=== PATIENT | male | born 1990 | race Hispanic/Latino ===

== ENCOUNTER 2018-09-22 16:26 | Emergency (ER) | payer SELFPAY ==
[~2018-09-22 16:26] MED LIST: CLIN300C9 PO; INSLAN SQ; SULF-168 PO; TRAM50TA2 PO
[2018-09-22 16:51] LABS: BASOPHILS % (AUTO) 0.4 % (0.0-5.0); EOSINOPHILS % (AUTO) 2.1 % (0.0-8.0); HEMATOCRIT 35.5 % (42-54); LYMPHOCYTES % (AUTO) 20.6 % (21.0-51.0); MEAN CORPUSCULAR HGB CONC 33.9 g/dL (32.0-36.0); MEAN CORPUSCULAR VOLUME 88.4 fL (79-99); MONOCYTES % (AUTO) 6.9 % (3.0-13.0); PLATELET COUNT (AUTO) 285 K/uL (130-400); RED BLOOD CELL COUNT(AUTO) 4.02 MIL/uL (4.50-6.20); RED CELL DISTRIBUTION WIDTH 12.5 % (11.0-15.5); WHITE BLOOD COUNT (AUTO) 8.5 K/uL (4.8-10.8)
[2018-09-22 17:31] LABS: CREATININE 0.7 mg/dL (0.5-1.5); POTASSIUM 4.2 mmol/L (3.5-5.1)
[2018-09-22 17:32] LABS: ALBUMIN 2.6 g/dL (3.5-5.0); BILIRUBIN,TOTAL 0.1 mg/dL (0.2-1.0)
[2018-09-22] MEDS ORDERED: CEFTRIAXONE SODIUM 1 GM ONE (17:37)
[2018-09-22] MEDS ORDERED: SODIUM CHLORIDE 0.9% 50 ML IV ONE (17:38)
== END 2018-09-22 18:37 | disposition home or self-care (01) ==
LOC: EDH 16:26
DX: E11.621 Type 2 diabetes mellitus with foot ulcer (principal); E11.65 Type 2 diabetes mellitus with hyperglycemia; E78.5 Hyperlipidemia, unspecified; Z79.4 Long term (current) use of insulin
CPT/HCPCS: 36415; 73630; 80053; 85025; 96374; 99285; J0696

== ENCOUNTER 2018-10-02 21:02 | Inpatient (IN) | payer OTHER ==
[~2018-10-02] VITALS: Ht 180.3 cm; Wt 71.0 kg
[2018-10-02 22:30] LABS: BASOPHILS % (AUTO) 0.3 % (0.0-5.0); EOSINOPHILS % (AUTO) 0.3 % (0.0-8.0); HEMATOCRIT 35.3 % (42-54); LYMPHOCYTES % (AUTO) 8.9 % (21.0-51.0); MEAN CORPUSCULAR HEMOGLOBIN 28.5 pg (27.0-33.0); MEAN CORPUSCULAR HGB CONC 32.5 g/dL (32.0-36.0); MEAN CORPUSCULAR VOLUME 87.7 fL (79-99); MONOCYTES % (AUTO) 8.4 % (3.0-13.0); NEUTROPHILS % (AUTO) 82.1 % (40.0-77.0); PLATELET COUNT (AUTO) 381 K/uL (130-400); RED BLOOD CELL COUNT(AUTO) 4.03 MIL/uL (4.50-6.20); RED CELL DISTRIBUTION WIDTH 12.2 % (11.0-15.5); WHITE BLOOD COUNT (AUTO) 13.4 K/uL (4.8-10.8)
[2018-10-02 22:47] LABS: ALBUMIN 2.4 g/dL (3.5-5.0); BILIRUBIN,TOTAL 0.3 mg/dL (0.2-1.0); CRP QUANTITATIVE 170.2 mg/L (0.00-9.0); POTASSIUM 4.7 mmol/L (3.5-5.1); TOTAL PROTEIN, SERUM 8.1 g/dL (6.0-8.3)
[2018-10-02] MEDS ORDERED: LEVOFLOXACIN 500 MG TABLET ONE (23:01)
[2018-10-02] MEDS ORDERED: SODIUM CHLORIDE 0.9% 1000ML 1,000 ML IV ONE (23:01)
[2018-10-02] MEDS ORDERED: ZOSYN 3.375GM+NS 50ML 50 ML IV ONE (23:02)
[2018-10-02] MEDS ORDERED: INSULIN HUMULIN R 100 UNIT/ML 3ML ONE (23:03)
[2018-10-02] MEDS ORDERED: SODIUM CHLORIDE 0.9% 50 ML IV ONE (23:04)
[2018-10-02 23:23] LABS: APPEARANCE,URINE Clear (CLEAR); BILIRUBIN,URINE Negative (NEGATIVE); COLOR,URINE Yellow (YELLOW); GLUCOSE, URINE (UA) >=1000 mg/dL (NEGATIVE); KETONES,URINE 40 mg/dL (NEGATIVE); LEUKOCYTE ESTERASE ,URINE Negative (NEGATIVE); NITRATE,URINE Negative (NEGATIVE); OCCULT BLOOD,URINE Small (NEGATIVE); PH,URINE 6.5 (5.0-8.0); PROTEIN,URINE Negative (NEGATIVE); UROBILINOGEN,URINE 0.2 mg/dL (0.2-1.0)
[2018-10-02 23:49] LABS: BACTERIA,URINE None Seen /HPF (None Seen); MUCUS,URINE Few LPF (None Seen); SQUAMOUS EPITHELIAL CELL,UR Few /HPF (0-2); WBC,URINE None Seen /HPF (0-1)
[2018-10-02 23:59] LABS: ERYTHROCYTE SEDIMENTATION RATE 124 MM/HR (0-15)
[2018-10-03] VITALS (20 sets, daily range): BP systolic 94–151; BP diastolic 39–98
[2018-10-03] MEDS: SODIUM CHLORIDE 0.9% 1000ML 1,000 ML IV SCH ×2 (00:47→23:59)
[2018-10-03] MEDS ORDERED: VANCOMYCIN 1GM+NS 250ML 250 ML IV SCH (01:00)
[2018-10-03] MEDS ORDERED: VANCOMYCIN PROTOCOL PER PHARMACY IV SCH ×2 (01:15→05:00)
[2018-10-03] MEDS ORDERED: VANCOMYCIN 1GM+NS 250ML 250 ML IV ONE (01:20)
[2018-10-03] MEDS ORDERED: SODIUM CHLORIDE 0.9% 1000ML 1,000 ML IV ONE (01:20)
[2018-10-03] MEDS: ZOSYN 3.375GM+NS 50ML 50 ML IV SCH ×3 (06:27→22:26)
[2018-10-03] MEDS ORDERED: VANCOMYCIN 1.75 GM in SODIUM CHLORIDE 0.9% 250 ML IV SCH (06:30)
[2018-10-03] MEDS ORDERED: DEXTROSE 50%-WATER 50 ML DISP.SYRIN IV PRN (06:45)
[2018-10-03] MEDS ORDERED: GLUCAGON 1MG KIT 1 MG ML IM PRN (06:45)
[2018-10-03] MEDS: INSULIN HUMULIN R 100 UNIT/ML 3ML SQ SCH ×4 (07:04→22:26)
[2018-10-03] MEDS ORDERED: PNEUMOCOCCAL VACCINE POLYVALENT 0.5 ML/VIAL [PPV] IM ONE (09:00)
[2018-10-03] MEDS: FAMOTIDINE 20MG TAB 20 MG TAB PO SCH ×2 (09:03→22:26)
[2018-10-03 12:48] LABS: HEMATOCRIT 30.8 % (42-54); MEAN CORPUSCULAR HEMOGLOBIN 29.4 pg (27.0-33.0); MEAN CORPUSCULAR HGB CONC 33.8 g/dL (32.0-36.0); PLATELET COUNT (AUTO) 354 K/uL (130-400); RED BLOOD CELL COUNT(AUTO) 3.54 MIL/uL (4.50-6.20); WHITE BLOOD COUNT (AUTO) 12.8 K/uL (4.8-10.8)
[2018-10-03 13:15] LABS: ALBUMIN 2.1 g/dL (3.5-5.0); BILIRUBIN,TOTAL 0.3 mg/dL (0.2-1.0); CREATININE 0.9 mg/dL (0.5-1.5); POTASSIUM 3.5 mmol/L (3.5-5.1); TOTAL PROTEIN, SERUM 7.1 g/dL (6.0-8.3)
[2018-10-03] MEDS: ACETAMINOPHEN 325 MG TAB PO PRN (14:10)
[2018-10-03] MEDS ORDERED: MIDAZOLAM HCL 1 MG/ML 2ML VIAL ONE (17:34)
[2018-10-03] MEDS ORDERED: FENTANYL CITRATE PF 50 MCG/1 ML 2ML VIAL ONE (17:34)
[2018-10-03] MEDS ORDERED: PROPOFOL 10 MG/ML 20ML VIAL IV ONE (17:34)
[2018-10-03] MEDS ORDERED: LIDOCAINE HCL 1% 20 ML VIAL ONE (17:36)
[2018-10-03] MEDS ORDERED: BUPIVACAINE/PF 0.5% 30ML VIAL ONE (17:36)
[2018-10-03] MEDS: VANCOMYCIN 1GM+NS 250ML 250 ML IV SCH ×2 (18:20→18:30)
[2018-10-03] MEDS: ONDANSETRON HCL 4 MG/2 ML VIAL IV PRN (22:44)
[2018-10-03] MEDS: MORPHINE SULFATE 4 MG/1ML SYG IV PRN (23:58)
[2018-10-04 04:00] VITALS: BP 116/76
[2018-10-04] MEDS: ZOSYN 3.375GM+NS 50ML 50 ML IV SCH ×3 (06:03→22:29)
[2018-10-04] MEDS: VANCOMYCIN 1GM+NS 250ML 250 ML IV SCH (06:04)
[2018-10-04 06:19] LABS: HEMATOCRIT 30.8 % (42-54); MEAN CORPUSCULAR HGB CONC 33.4 g/dL (32.0-36.0); MEAN CORPUSCULAR VOLUME 86.9 fL (79-99); PLATELET COUNT (AUTO) 361 K/uL (130-400); RED BLOOD CELL COUNT(AUTO) 3.55 MIL/uL (4.50-6.20); RED CELL DISTRIBUTION WIDTH 12.2 % (11.0-15.5); WHITE BLOOD COUNT (AUTO) 11.6 K/uL (4.8-10.8)
[2018-10-04] MEDS: SODIUM CHLORIDE 0.9% 1000ML 1,000 ML IV SCH ×2 (06:20→21:42)
[2018-10-04] MEDS: ONDANSETRON HCL 4 MG/2 ML VIAL IV PRN ×2 (06:25→17:42)
[2018-10-04 06:35] LABS: CREATININE 2.2 mg/dL (0.5-1.5); POTASSIUM 4.2 mmol/L (3.5-5.1)
[2018-10-04] MEDS: INSULIN HUMULIN R 100 UNIT/ML 3ML SQ SCH ×4 (06:42→21:23)
[2018-10-04 08:30] VITALS: BP 131/89
[2018-10-04] MEDS: MORPHINE SULFATE 4 MG/1ML SYG IV PRN (11:04)
[2018-10-04] MEDS: FAMOTIDINE 20MG TAB 20 MG TAB PO SCH ×2 (11:05→21:23)
[2018-10-04 12:08] VITALS: BP 126/82
[2018-10-04] MEDS ORDERED: DIPH,PERTUSS(ACELL),TET VAC/PF 0.5 ML VIAL IM SCH (14:15)
[2018-10-04 16:41] VITALS: BP 127/84
[2018-10-04 19:00] VITALS: BP 123/81
[2018-10-04] MEDS: INSULIN GLARGINE 100 UNITS/ML 10 ML VIAL SQ SCH (21:21)
[2018-10-04] MEDS: ACETAMINOPHEN 325 MG TAB PO PRN (22:29)
[2018-10-04 23:00] VITALS: BP 108/65
[2018-10-05 03:00] VITALS: BP 106/60
[2018-10-05 04:48] LABS: HEMATOCRIT 29.4 % (42-54); MEAN CORPUSCULAR HGB CONC 34.3 g/dL (32.0-36.0); MEAN CORPUSCULAR VOLUME 87.4 fL (79-99); PLATELET COUNT (AUTO) 434 K/uL (130-400); RED BLOOD CELL COUNT(AUTO) 3.37 MIL/uL (4.50-6.20); RED CELL DISTRIBUTION WIDTH 12.1 % (11.0-15.5); WHITE BLOOD COUNT (AUTO) 10.1 K/uL (4.8-10.8)
[2018-10-05 04:55] LABS: CREATININE 3.6 mg/dL (0.5-1.5); POTASSIUM 4.3 mmol/L (3.5-5.1)
[2018-10-05] MEDS: ZOSYN 3.375GM+NS 50ML 50 ML IV SCH ×3 (05:12→23:13)
[2018-10-05] MEDS: ONDANSETRON HCL 4 MG/2 ML VIAL IV PRN ×3 (05:18→16:44)
[2018-10-05] MEDS: SODIUM CHLORIDE 0.9% 1000ML 1,000 ML IV SCH (05:18)
[2018-10-05] MEDS: INSULIN HUMULIN R 100 UNIT/ML 3ML SQ SCH ×4 (06:21→20:32)
[2018-10-05] MEDS: VANCOMYCIN 500MG+NS 100ML 100 ML IV SCH ×2 (06:24→20:31)
[2018-10-05 08:16] VITALS: BP 119/78
[2018-10-05] MEDS: ENOXAPARIN SODIUM 30 MG/0.3 ML SQ SCH (09:54)
[2018-10-05] MEDS: FAMOTIDINE 20MG TAB 20 MG TAB PO SCH ×2 (09:57→20:31)
[2018-10-05] MEDS ORDERED: LACTULOSE 20 GM/30 ML UDCUP PO PRN (10:00)
[2018-10-05 12:17] VITALS: BP 125/82
[2018-10-05 16:35] VITALS: BP 137/88
[2018-10-05] MEDS: ACETAMINOPHEN 325 MG TAB PO PRN (16:45)
[2018-10-05 19:38] VITALS: BP 139/83
[2018-10-05] MEDS: INSULIN GLARGINE 100 UNITS/ML 10 ML VIAL SQ SCH (20:33)
[2018-10-06] VITALS (7 sets, daily range): BP systolic 129–147; BP diastolic 83–94
[2018-10-06 04:45] LABS: HEMATOCRIT 31.3 % (42-54); MEAN CORPUSCULAR HGB CONC 33.3 g/dL (32.0-36.0); MEAN CORPUSCULAR VOLUME 87.3 fL (79-99); PLATELET COUNT (AUTO) 409 K/uL (130-400); POTASSIUM 3.8 mmol/L (3.5-5.1); RED BLOOD CELL COUNT(AUTO) 3.58 MIL/uL (4.50-6.20); RED CELL DISTRIBUTION WIDTH 12.4 % (11.0-15.5); WHITE BLOOD COUNT (AUTO) 10.4 K/uL (4.8-10.8)
[2018-10-06] MEDS: ONDANSETRON HCL 4 MG/2 ML VIAL IV PRN ×3 (05:24→23:39)
[2018-10-06] MEDS: VANCOMYCIN 500MG+NS 100ML 100 ML IV SCH (06:16)
[2018-10-06] MEDS: ZOSYN 3.375GM+NS 50ML 50 ML IV SCH ×3 (06:16→23:46)
[2018-10-06] MEDS: INSULIN HUMULIN R 100 UNIT/ML 3ML SQ SCH ×4 (06:17→21:22)
[2018-10-06] MEDS: ENOXAPARIN SODIUM 30 MG/0.3 ML SQ SCH (10:36)
[2018-10-06] MEDS: FAMOTIDINE 20MG TAB 20 MG TAB PO SCH ×2 (13:05→21:38)
[2018-10-06] MEDS: METOCLOPRAMIDE 5 MG TABLET PO SCH ×2 (13:05→17:00)
[2018-10-06] MEDS: MORPHINE SULFATE 4 MG/1ML SYG IV PRN ×3 (13:14→23:39)
[2018-10-06] MEDS ORDERED: SODIUM CHLORIDE 0.9% 1000ML 1,000 ML IV SCH (13:45)
[2018-10-06 17:35] LABS: APPEARANCE,URINE Clear (CLEAR); BILIRUBIN,URINE Negative (NEGATIVE); COLOR,URINE Yellow (YELLOW); GLUCOSE, URINE (UA) TRACE mg/dL (NEGATIVE); KETONES,URINE Trace mg/dL (NEGATIVE); LEUKOCYTE ESTERASE ,URINE Negative (NEGATIVE); NITRATE,URINE Negative (NEGATIVE); OCCULT BLOOD,URINE Negative (NEGATIVE); PH,URINE 5.5 (5.0-8.0); PROTEIN,URINE POS 1+ (NEGATIVE); UROBILINOGEN,URINE 0.2 mg/dL (0.2-1.0)
[2018-10-06 18:40] LABS: BACTERIA,URINE Rare /HPF (None Seen); RBC,URINE 0-1 /HPF (0-1); SQUAMOUS EPITHELIAL CELL,UR Rare /HPF (0-2); WBC,URINE 0-1 /HPF (0-1)
[2018-10-06] MEDS: SODIUM CHLORIDE 0.9% 1000ML 1,000 ML IV SCH ×2 (18:45→21:51)
[2018-10-06] MEDS: AMOXICILLIN 500 MG CAPSULE PO SCH (18:55)
[2018-10-06] MEDS: INSULIN GLARGINE 100 UNITS/ML 10 ML VIAL SQ SCH (21:23)
[2018-10-07 03:10] VITALS: BP_SYST 153; BP_SYST 165; BP_DIAS 84; BP_DIAS 85
[2018-10-07] MEDS: AMOXICILLIN 500 MG CAPSULE PO SCH ×2 (05:12→17:10)
[2018-10-07 05:46] LABS: ALBUMIN 1.9 g/dL (3.5-5.0); BILIRUBIN,TOTAL 0.3 mg/dL (0.2-1.0); CREATININE 3.8 mg/dL (0.5-1.5); MAGNESIUM 2.2 mg/dL (1.80-2.40); PHOSPHORUS 5.2 mg/dL (2.5-4.9); POTASSIUM 3.7 mmol/L (3.5-5.1); TOTAL PROTEIN, SERUM 6.8 g/dL (6.0-8.3); URIC ACID 4.7 mg/dL (2.6-7.2)
[2018-10-07 05:50] LABS: BAND NEUTROPHILS % (MANUAL) 2 % (0-2); EOSINOPHILS % (MANUAL) 1 % (1-6); LYMPHOCYTES % (MANUAL) 16 % (22-44); MONOCYTES % (MANUAL) 12 % (2-9); SEGMENTED NEUTROPHILS % 69 % (40-70)
[2018-10-07 05:51] LABS: MAN.DIFF COMMENT-IMPRESSION MANUAL DIFFERENTIAL
[2018-10-07 05:52] LABS: PLATELET MORPHOLOGY COMMENT ADEQUATE
[2018-10-07 05:57] LABS: HEMATOCRIT 33.7 % (42-54); MEAN CORPUSCULAR HEMOGLOBIN 29.3 pg (27.0-33.0); MEAN CORPUSCULAR HGB CONC 33.6 g/dL (32.0-36.0); MEAN CORPUSCULAR VOLUME 87.2 fL (79-99); PLATELET COUNT (AUTO) 482 K/uL (130-400); RED BLOOD CELL COUNT(AUTO) 3.86 MIL/uL (4.50-6.20); RED CELL DISTRIBUTION WIDTH 12.2 % (11.0-15.5); WHITE BLOOD COUNT (AUTO) 10.8 K/uL (4.8-10.8)
[2018-10-07] MEDS: INSULIN HUMULIN R 100 UNIT/ML 3ML SQ SCH ×4 (06:49→21:08)
[2018-10-07] MEDS: SODIUM CHLORIDE 0.9% 1000ML 1,000 ML IV SCH ×2 (06:51→23:23)
[2018-10-07] MEDS: METOCLOPRAMIDE 5 MG TABLET PO SCH ×3 (06:51→17:10)
[2018-10-07] MEDS: ZOSYN 3.375GM+NS 50ML 50 ML IV SCH ×3 (06:51→23:23)
[2018-10-07 07:00] VITALS: BP 131/82
[2018-10-07] MEDS: FAMOTIDINE 20MG TAB 20 MG TAB PO SCH ×2 (09:49→21:15)
[2018-10-07] MEDS: INSULIN GLARGINE 100 UNITS/ML 10 ML VIAL SQ SCH ×2 (09:50→21:08)
[2018-10-07] MEDS: ONDANSETRON HCL 4 MG/2 ML VIAL IV PRN ×2 (09:56→16:33)
[2018-10-07] MEDS: MORPHINE SULFATE 4 MG/1ML SYG IV PRN ×2 (09:57→16:33)
[2018-10-07 11:00] VITALS: BP 125/83
[2018-10-07] MEDS: ENOXAPARIN SODIUM 30 MG/0.3 ML SQ SCH (11:02)
[2018-10-07 16:00] VITALS: BP 140/89
[2018-10-07 19:25] VITALS: BP 127/83
[2018-10-07] MEDS: FOLIC ACID/VITAMIN B COMP W-C 1 MG CAPSULE PO SCH (21:15)
[2018-10-08] VITALS (7 sets, daily range): BP systolic 140–158; BP diastolic 77–106
[2018-10-08 04:33] LABS: BASOPHILS % (AUTO) 0.5 % (0.0-5.0); EOSINOPHILS % (AUTO) 1.2 % (0.0-8.0); HEMATOCRIT 30.3 % (42-54); LYMPHOCYTES % (AUTO) 12.2 % (21.0-51.0); MEAN CORPUSCULAR HEMOGLOBIN 28.5 pg (27.0-33.0); MEAN CORPUSCULAR HGB CONC 32.7 g/dL (32.0-36.0); MEAN CORPUSCULAR VOLUME 87.2 fL (79-99); MONOCYTES % (AUTO) 11.4 % (3.0-13.0); NEUTROPHILS % (AUTO) 74.7 % (40.0-77.0); PLATELET COUNT (AUTO) 346 K/uL (130-400); RED BLOOD CELL COUNT(AUTO) 3.48 MIL/uL (4.50-6.20); RED CELL DISTRIBUTION WIDTH 12.4 % (11.0-15.5); WHITE BLOOD COUNT (AUTO) 9.6 K/uL (4.8-10.8)
[2018-10-08 04:41] LABS: CREATININE 3.6 mg/dL (0.5-1.5); POTASSIUM 3.3 mmol/L (3.5-5.1)
[2018-10-08] MEDS: AMOXICILLIN 500 MG CAPSULE PO SCH ×2 (05:43→17:53)
[2018-10-08] MEDS: ACETAMINOPHEN 325 MG TAB PO PRN (05:47)
[2018-10-08] MEDS: METOCLOPRAMIDE 5 MG TABLET PO SCH ×3 (05:48→17:53)
[2018-10-08] MEDS: INSULIN HUMULIN R 100 UNIT/ML 3ML SQ SCH ×4 (06:08→20:06)
[2018-10-08] MEDS: ZOSYN 3.375GM+NS 50ML 50 ML IV SCH ×3 (06:25→23:07)
[2018-10-08] MEDS ORDERED: POTASSIUM CHLORIDE 10% ELIXIR 20 MEQ/15 ML UDCUP PO PRN (06:45)
[2018-10-08] MEDS ORDERED: LIDOCAINE HCL-MPF 1% 2ML VIAL IVP PRN (06:45)
[2018-10-08] MEDS ORDERED: POTASSIUM CHLORIDE 10MEQ/100ML 100 ML IV PRN (06:45)
[2018-10-08] MEDS: SODIUM CHLORIDE 0.9% 1000ML 1,000 ML IV SCH ×3 (07:27→23:19)
[2018-10-08] MEDS: FAMOTIDINE 20MG TAB 20 MG TAB PO SCH ×2 (11:24→21:39)
[2018-10-08] MEDS: FOLIC ACID/VITAMIN B COMP W-C 1 MG CAPSULE PO SCH (11:24)
[2018-10-08] MEDS: ENOXAPARIN SODIUM 30 MG/0.3 ML SQ SCH (11:24)
[2018-10-08] MEDS: INSULIN GLARGINE 100 UNITS/ML 10 ML VIAL SQ SCH ×2 (11:31→21:46)
[2018-10-08] MEDS: POTASSIUM CHLORIDE 20 MEQ ERTAB PO PRN ×2 (12:39→15:24)
[2018-10-08] MEDS: METRONIDAZOLE 500 MG TABLET PO SCH ×2 (15:23→21:39)
[2018-10-08] MEDS: ONDANSETRON HCL 4 MG/2 ML VIAL IV PRN (15:23)
[2018-10-09] VITALS (33 sets, daily range): BP systolic 129–173; BP diastolic 82–117
[2018-10-09] MEDS: AMOXICILLIN 500 MG CAPSULE PO SCH ×2 (05:15→16:40)
[2018-10-09] MEDS: METRONIDAZOLE 500 MG TABLET PO SCH ×3 (05:22→21:34)
[2018-10-09] MEDS: ONDANSETRON HCL 4 MG/2 ML VIAL IV PRN (05:29)
[2018-10-09 05:46] LABS: BASOPHILS % (AUTO) 0.8 % (0.0-5.0); EOSINOPHILS % (AUTO) 1.7 % (0.0-8.0); HEMATOCRIT 32.1 % (42-54); MEAN CORPUSCULAR HEMOGLOBIN 29.6 pg (27.0-33.0); MONOCYTES % (AUTO) 8.8 % (3.0-13.0); NEUTROPHILS % (AUTO) 78.7 % (40.0-77.0); PLATELET COUNT (AUTO) 416 K/uL (130-400); RED BLOOD CELL COUNT(AUTO) 3.69 MIL/uL (4.50-6.20); RED CELL DISTRIBUTION WIDTH 12.3 % (11.0-15.5); WHITE BLOOD COUNT (AUTO) 10.2 K/uL (4.8-10.8)
[2018-10-09 06:06] LABS: CREATININE 3.5 mg/dL (0.5-1.5); POTASSIUM 3.6 mmol/L (3.5-5.1)
[2018-10-09] MEDS: ZOSYN 3.375GM+NS 50ML 50 ML IV SCH ×3 (06:20→22:49)
[2018-10-09] MEDS: METOCLOPRAMIDE 5 MG TABLET PO SCH ×3 (06:21→16:40)
[2018-10-09] MEDS: INSULIN HUMULIN R 100 UNIT/ML 3ML SQ SCH ×4 (06:21→21:47)
[2018-10-09] MEDS: SODIUM CHLORIDE 0.9% 1000ML 1,000 ML IV SCH ×3 (06:45→20:05)
[2018-10-09] MEDS ORDERED: LIDOCAINE HCL 1% 20 ML VIAL ONE (06:59)
[2018-10-09] MEDS ORDERED: BUPIVACAINE/PF 0.5% 30ML VIAL ONE (06:59)
[2018-10-09] MEDS ORDERED: ONDANSETRON HCL 4 MG/2 ML VIAL ONE ×2 (07:28→09:56)
[2018-10-09] MEDS ORDERED: MIDAZOLAM HCL 1 MG/ML 2ML VIAL ONE (07:28)
[2018-10-09] MEDS ORDERED: LIDOCAINE PF 2% 5ML ABBOJECT ONE (07:28)
[2018-10-09] MEDS ORDERED: DEXAMETHASONE SOD PHOSPHATE 10MG/ML 1ML VIAL ONE (07:28)
[2018-10-09] MEDS ORDERED: PROPOFOL 10 MG/ML 20ML VIAL IV ONE (07:28)
[2018-10-09] MEDS ORDERED: FENTANYL CITRATE PF 50 MCG/1 ML 2ML VIAL ONE (07:29)
[2018-10-09] MEDS: FOLIC ACID/VITAMIN B COMP W-C 1 MG CAPSULE PO SCH (07:56)
[2018-10-09] MEDS: ENOXAPARIN SODIUM 30 MG/0.3 ML SQ SCH (07:57)
[2018-10-09] MEDS: INSULIN GLARGINE 100 UNITS/ML 10 ML VIAL SQ SCH ×2 (07:57→21:48)
[2018-10-09] MEDS: FAMOTIDINE 20MG TAB 20 MG TAB PO SCH ×2 (07:57→21:34)
[2018-10-09] MEDS ORDERED: EPHEDRINE SULFATE 50 MG/ML AMPULE ONE (08:32)
[2018-10-09] MEDS ORDERED: LABETALOL 20 MG/4 ML DISP.SYRIN IV ONE (09:07)
[2018-10-09] MEDS ORDERED: METOPROLOL TARTRATE 1 MG/ML 5ML VIAL IV PRN (11:45)
[2018-10-09] MEDS: AMLODIPINE BESYLATE 5 MG TAB PO SCH (15:27)
[2018-10-09] MEDS: METOPROLOL TARTRATE 25 MG TAB PO SCH ×2 (15:27→21:34)
[2018-10-09] MEDS: MORPHINE SULFATE 4 MG/1ML SYG IV PRN (21:38)
[2018-10-10] MEDS: SODIUM CHLORIDE 0.9% 1000ML 1,000 ML IV SCH ×2 (00:43→07:18)
[2018-10-10] MEDS: ACETAMINOPHEN 325 MG TAB PO PRN ×2 (00:45→14:50)
[2018-10-10 04:00] VITALS: BP 128/96
[2018-10-10] MEDS ORDERED: SIMETHICONE 80 MG TAB.CHEW ONE (04:54)
[2018-10-10] MEDS ORDERED: SIMETHICONE 80 MG TAB.CHEW PO PRN (05:00)
[2018-10-10] MEDS: METRONIDAZOLE 500 MG TABLET PO SCH ×3 (05:40→21:48)
[2018-10-10] MEDS: AMOXICILLIN 500 MG CAPSULE PO SCH ×2 (05:40→17:40)
[2018-10-10 05:53] LABS: BASOPHILS % (AUTO) 0.5 % (0.0-5.0); HEMATOCRIT 30.5 % (42-54); LYMPHOCYTES % (AUTO) 14.3 % (21.0-51.0); MEAN CORPUSCULAR HEMOGLOBIN 28.7 pg (27.0-33.0); MEAN CORPUSCULAR HGB CONC 33.1 g/dL (32.0-36.0); MEAN CORPUSCULAR VOLUME 86.7 fL (79-99); MONOCYTES % (AUTO) 9.9 % (3.0-13.0); NEUTROPHILS % (AUTO) 73.3 % (40.0-77.0); PLATELET COUNT (AUTO) 349 K/uL (130-400); RED BLOOD CELL COUNT(AUTO) 3.52 MIL/uL (4.50-6.20); RED CELL DISTRIBUTION WIDTH 12.3 % (11.0-15.5); WHITE BLOOD COUNT (AUTO) 8.6 K/uL (4.8-10.8)
[2018-10-10 06:12] LABS: CREATININE 3.4 mg/dL (0.5-1.5); POTASSIUM 3.2 mmol/L (3.5-5.1)
[2018-10-10] MEDS: INSULIN HUMULIN R 100 UNIT/ML 3ML SQ SCH ×4 (07:16→21:00)
[2018-10-10] MEDS: ZOSYN 3.375GM+NS 50ML 50 ML IV SCH ×3 (07:18→22:59)
[2018-10-10] MEDS: METOCLOPRAMIDE 5 MG TABLET PO SCH ×3 (07:18→17:40)
[2018-10-10 08:00] VITALS: BP 137/101
[2018-10-10] MEDS: FAMOTIDINE 20MG TAB 20 MG TAB PO SCH ×2 (09:35→21:48)
[2018-10-10] MEDS: FOLIC ACID/VITAMIN B COMP W-C 1 MG CAPSULE PO SCH (09:35)
[2018-10-10] MEDS: AMLODIPINE BESYLATE 5 MG TAB PO SCH (09:35)
[2018-10-10] MEDS: METOPROLOL TARTRATE 25 MG TAB PO SCH ×2 (09:35→21:48)
[2018-10-10] MEDS: ENOXAPARIN SODIUM 30 MG/0.3 ML SQ SCH (09:36)
[2018-10-10] MEDS: ONDANSETRON HCL 4 MG/2 ML VIAL IV PRN (09:37)
[2018-10-10] MEDS: INSULIN GLARGINE 100 UNITS/ML 10 ML VIAL SQ SCH ×2 (09:56→21:50)
[2018-10-10 12:00] VITALS: BP 135/90
[2018-10-10] MEDS: POTASSIUM CHLORIDE 20 MEQ ERTAB PO PRN ×2 (12:45→15:07)
[2018-10-10 16:00] VITALS: BP 148/90
[2018-10-10 19:00] VITALS: BP 153/98
[2018-10-10 23:00] VITALS: BP 133/81
[2018-10-11 03:00] VITALS: BP 137/96
[2018-10-11] MEDS: METOCLOPRAMIDE 5 MG TABLET PO SCH ×3 (06:03→16:20)
[2018-10-11] MEDS: METRONIDAZOLE 500 MG TABLET PO SCH ×3 (06:03→23:28)
[2018-10-11] MEDS: ZOSYN 3.375GM+NS 50ML 50 ML IV SCH ×3 (06:03→23:28)
[2018-10-11] MEDS: AMOXICILLIN 500 MG CAPSULE PO SCH ×2 (06:03→18:18)
[2018-10-11] MEDS: INSULIN HUMULIN R 100 UNIT/ML 3ML SQ SCH ×4 (06:04→20:14)
[2018-10-11 06:27] LABS: HEMATOCRIT 31.6 % (42-54); MEAN CORPUSCULAR HEMOGLOBIN 29.7 pg (27.0-33.0); MEAN CORPUSCULAR HGB CONC 34.3 g/dL (32.0-36.0); MEAN CORPUSCULAR VOLUME 86.7 fL (79-99); PLATELET COUNT (AUTO) 425 K/uL (130-400); RED BLOOD CELL COUNT(AUTO) 3.64 MIL/uL (4.50-6.20); RED CELL DISTRIBUTION WIDTH 12.7 % (11.0-15.5); WHITE BLOOD COUNT (AUTO) 9.5 K/uL (4.8-10.8)
[2018-10-11 06:47] LABS: CREATININE 3.2 mg/dL (0.5-1.5); MAGNESIUM 1.7 mg/dL (1.80-2.40); PHOSPHORUS 3.2 mg/dL (2.5-4.9); POTASSIUM 3.4 mmol/L (3.5-5.1)
[2018-10-11 07:54] VITALS: BP 155/98
[2018-10-11] MEDS ORDERED: TEMAZEPAM 30 MG CAP PO PRN (09:00)
[2018-10-11] MEDS: METOPROLOL TARTRATE 25 MG TAB PO SCH ×2 (09:16→20:10)
[2018-10-11] MEDS: FOLIC ACID/VITAMIN B COMP W-C 1 MG CAPSULE PO SCH (09:16)
[2018-10-11] MEDS: FAMOTIDINE 20MG TAB 20 MG TAB PO SCH ×2 (09:16→20:10)
[2018-10-11] MEDS: MAGNESIUM 2GM PREMIX 50ML 50 ML IV SCH (09:17)
[2018-10-11] MEDS: AMLODIPINE BESYLATE 5 MG TAB PO SCH (09:17)
[2018-10-11] MEDS: MAGNESIUM OXIDE 400 MG TABLET PO SCH (09:17)
[2018-10-11] MEDS: ENOXAPARIN SODIUM 30 MG/0.3 ML SQ SCH (09:18)
[2018-10-11] MEDS: INSULIN GLARGINE 100 UNITS/ML 10 ML VIAL SQ SCH ×2 (09:33→20:15)
[2018-10-11] MEDS: SODIUM CHLORIDE 0.9% 1000ML 1,000 ML IV SCH ×2 (10:29→20:11)
[2018-10-11 12:00] VITALS: BP 129/81
[2018-10-11 16:00] VITALS: BP 128/86
[2018-10-11 20:00] VITALS: BP 142/84
[2018-10-12] VITALS: BP 140/84
[2018-10-12 04:00] VITALS: BP 144/86
[2018-10-12 05:17] LABS: HEMATOCRIT 29.5 % (42-54); MEAN CORPUSCULAR HGB CONC 33.8 g/dL (32.0-36.0); MEAN CORPUSCULAR VOLUME 85.7 fL (79-99); PLATELET COUNT (AUTO) 343 K/uL (130-400); RED BLOOD CELL COUNT(AUTO) 3.44 MIL/uL (4.50-6.20); RED CELL DISTRIBUTION WIDTH 12.5 % (11.0-15.5); WHITE BLOOD COUNT (AUTO) 7.6 K/uL (4.8-10.8)
[2018-10-12 05:37] LABS: % IRON SATURATION 23.9 % (30-44)
[2018-10-12 05:42] LABS: CREATININE 2.8 mg/dL (0.5-1.5); MAGNESIUM 1.8 mg/dL (1.80-2.40); POTASSIUM 3.1 mmol/L (3.5-5.1)
[2018-10-12] MEDS: METOCLOPRAMIDE 5 MG TABLET PO SCH ×2 (05:58→11:30)
[2018-10-12] MEDS: METRONIDAZOLE 500 MG TABLET PO SCH (05:58)
[2018-10-12] MEDS: AMOXICILLIN 500 MG CAPSULE PO SCH (05:58)
[2018-10-12] MEDS: POTASSIUM CHLORIDE 20 MEQ ERTAB PO PRN (05:59)
[2018-10-12] MEDS: MAGNESIUM 2GM PREMIX 50ML 50 ML IV SCH (05:59)
[2018-10-12] MEDS: ZOSYN 3.375GM+NS 50ML 50 ML IV SCH (05:59)
[2018-10-12] MEDS: SODIUM CHLORIDE 0.9% 1000ML 1,000 ML IV SCH (06:00)
[2018-10-12] MEDS: INSULIN HUMULIN R 100 UNIT/ML 3ML SQ SCH ×2 (06:33→11:30)
[2018-10-12 08:00] VITALS: BP 123/78
[2018-10-12] MEDS: ENOXAPARIN SODIUM 30 MG/0.3 ML SQ SCH (10:13)
[2018-10-12] MEDS: METOPROLOL TARTRATE 25 MG TAB PO SCH (10:14)
[2018-10-12] MEDS: FAMOTIDINE 20MG TAB 20 MG TAB PO SCH (10:14)
[2018-10-12] MEDS: AMLODIPINE BESYLATE 5 MG TAB PO SCH (10:14)
[2018-10-12] MEDS: MAGNESIUM OXIDE 400 MG TABLET PO SCH (10:14)
[2018-10-12] MEDS: FOLIC ACID/VITAMIN B COMP W-C 1 MG CAPSULE PO SCH (10:14)
[2018-10-12] MEDS: INSULIN GLARGINE 100 UNITS/ML 10 ML VIAL SQ SCH (10:21)
[2018-10-12 12:00] VITALS: BP 133/91
[2018-10-12] MEDS ORDERED: METO25 PO (15:16)
[2018-10-12] MEDS ORDERED: METO5TAB2 PO (15:16)
[2018-10-12] MEDS ORDERED: AMLO5TAB4 PO (15:16)
[2018-10-12] MEDS ORDERED: AMOX500C2 PO (15:16)
[2018-10-12] MEDS ORDERED: METR500T PO (15:16)
[2018-10-12] MEDS ORDERED: MAGOX PO (15:16)
[2018-10-12 16:00] VITALS: BP 142/97
== END 2018-10-12 17:54 | disposition home or self-care (01) | DRG 628 ==
LOC: EDH 21:02 → EDHIP 21:03 → OBSVTOIN 21:03 → UNDOADMOB 10-03 00:05 → EDHIP 10-03 00:05 → 3BH 10-03 03:25
PROVIDERS: ADMIT Hospitalist; ATTEND Hospitalist
PROC: 3E0234Z Introduction of Serum, Toxoid and Vaccine into Muscle, Percutaneous Approach (ICD-10-PCS; 2018-10-03)
PROC: 3E0134Z Introduction of Serum, Toxoid and Vaccine into Subcutaneous Tissue, Percutaneous Approach (ICD-10-PCS; 2018-10-03)
PROC: 0QBP0ZZ Excision of Left Metatarsal, Open Approach (ICD-10-PCS; principal; 2018-10-03 18:35)
PROC: 0JDR0ZZ Extraction of Left Foot Subcutaneous Tissue and Fascia, Open Approach (ICD-10-PCS; 2018-10-03 18:35)
PROC: 3E02340 Introduction of Influenza Vaccine into Muscle, Percutaneous Approach (ICD-10-PCS; 2018-10-04)
PROC: 0JDR0ZZ Extraction of Left Foot Subcutaneous Tissue and Fascia, Open Approach (ICD-10-PCS; 2018-10-09)
PROC: 0QBP0ZZ Excision of Left Metatarsal, Open Approach (ICD-10-PCS; 2018-10-09)
PROC: 0JQR0ZZ Repair Left Foot Subcutaneous Tissue and Fascia, Open Approach (ICD-10-PCS; 2018-10-09)
DX: E10.69 Type 1 diabetes mellitus with other specified complication (principal); M72.6 Necrotizing fasciitis; G04.91 Myelitis, unspecified; M86.8X7 Other osteomyelitis, ankle and foot; L02.612 Cutaneous abscess of left foot; L03.116 Cellulitis of left lower limb; N12 Tubulo-interstitial nephritis, not specified as acute or chronic; I96 Gangrene, not elsewhere classified; E10.51 Type 1 diabetes mellitus with diabetic peripheral angiopathy without gangrene; N17.9 Acute kidney failure, unspecified; L97.529 Non-pressure chronic ulcer of other part of left foot with unspecified severity; E10.621 Type 1 diabetes mellitus with foot ulcer; E10.65 Type 1 diabetes mellitus with hyperglycemia; D64.9 Anemia, unspecified; E10.622 Type 1 diabetes mellitus with other skin ulcer; E78.5 Hyperlipidemia, unspecified; E83.42 Hypomagnesemia; E87.6 Hypokalemia; E10.21 Type 1 diabetes mellitus with diabetic nephropathy; G47.00 Insomnia, unspecified; I10 Essential (primary) hypertension; T36.8X5A Adverse effect of other systemic antibiotics, initial encounter; Y92.89 Other specified places as the place of occurrence of the external cause; Z79.4 Long term (current) use of insulin; Z79.899 Other long term (current) drug therapy; Z91.19 Patient's noncompliance with other medical treatment and regimen; Z91.14 Patient's other noncompliance with medication regimen; Z23 Encounter for immunization; Z83.3 Family history of diabetes mellitus; Z82.49 Family history of ischemic heart disease and other diseases of the circulatory system
CPT/HCPCS: 36415; 73620; 73718; 74176; 76770; 80048; 80053; 80202; 81001; 82009; 82948; 83540; 83550; 83735; 84100; 84550; 85025; 85027; 85651; 86140; 87040; 87070; 87076; 87077; 87186; 87205; 88304; 88305; 88311; 90715; 93005; 93925; 97039; G0008; J1100; J1650; J1815; J2001; J2250; J2270; J2405; J2543; J2704; J3010; J3370; J3475; J3490; J7030; Q2038

== ENCOUNTER → 2018-10-15 | Outpatient (CLI) | payer OTHER ==
[~2018-10-15] MED LIST changes: +AMLO5TAB4 PO; +AMOX500C2 PO; -CLIN300C9 PO; +MAGOX PO; +METO25 PO; +METO5TAB2 PO; +METR500T PO; -SULF-168 PO
[2018-10-15 11:16] VITALS: BP 117/86
== END | disposition home or self-care (01) ==
LOC: WHH 10:28
PROVIDERS: ATTEND Podiatrist
DX: T87.89 Other complications of amputation stump (principal); I10 Essential (primary) hypertension; E78.5 Hyperlipidemia, unspecified; E11.69 Type 2 diabetes mellitus with other specified complication; M86.8X7 Other osteomyelitis, ankle and foot; E11.52 Type 2 diabetes mellitus with diabetic peripheral angiopathy with gangrene; I96 Gangrene, not elsewhere classified; E11.21 Type 2 diabetes mellitus with diabetic nephropathy; Z79.4 Long term (current) use of insulin; Z79.899 Other long term (current) drug therapy; Y83.5 Amputation of limb(s) as the cause of abnormal reaction of the patient, or of later complication, without mention of misadventure at the time of the procedure
CPT/HCPCS: 97605

== ENCOUNTER → 2018-10-18 | Outpatient (CLI) | payer OTHER ==
[2018-10-18 11:14] VITALS: BP 111/82
== END | disposition home or self-care (01) ==
LOC: WHH 10:00
PROVIDERS: ATTEND Podiatrist
DX: E11.69 Type 2 diabetes mellitus with other specified complication (principal); M86.8X7 Other osteomyelitis, ankle and foot; E11.52 Type 2 diabetes mellitus with diabetic peripheral angiopathy with gangrene; I96 Gangrene, not elsewhere classified; E11.21 Type 2 diabetes mellitus with diabetic nephropathy; E78.5 Hyperlipidemia, unspecified; I10 Essential (primary) hypertension; Z79.4 Long term (current) use of insulin; Z79.899 Other long term (current) drug therapy
CPT/HCPCS: 97605

== ENCOUNTER → 2018-10-20 | Outpatient (CLI) | payer OTHER ==
[2018-10-20 14:28] VITALS: BP 67/41
== END | disposition home or self-care (01) ==
LOC: WHH 14:00
PROVIDERS: ATTEND Podiatrist
DX: E11.69 Type 2 diabetes mellitus with other specified complication (principal); M86.8X7 Other osteomyelitis, ankle and foot; E11.52 Type 2 diabetes mellitus with diabetic peripheral angiopathy with gangrene; I96 Gangrene, not elsewhere classified; E11.21 Type 2 diabetes mellitus with diabetic nephropathy; E78.5 Hyperlipidemia, unspecified; I10 Essential (primary) hypertension; Z79.4 Long term (current) use of insulin; Z79.899 Other long term (current) drug therapy
CPT/HCPCS: 97605

== ENCOUNTER → 2018-10-22 | Outpatient (CLI) | payer OTHER ==
[~2018-10-22] MED LIST changes: +INSU100I3 SQ; +INSU3INS3 SQ; +MAGN400T51 PO; +[UNRECOGNIZED DRUG - CODE] MC
[2018-10-22 10:38] VITALS: BP 78/49
== END | disposition home or self-care (01) ==
LOC: WHH 10:30
PROVIDERS: ATTEND Podiatrist
DX: E11.69 Type 2 diabetes mellitus with other specified complication (principal); M86.8X7 Other osteomyelitis, ankle and foot; E11.52 Type 2 diabetes mellitus with diabetic peripheral angiopathy with gangrene; I96 Gangrene, not elsewhere classified; E11.21 Type 2 diabetes mellitus with diabetic nephropathy; E78.5 Hyperlipidemia, unspecified; I10 Essential (primary) hypertension; Z79.4 Long term (current) use of insulin; Z79.899 Other long term (current) drug therapy
CPT/HCPCS: 97605

== ENCOUNTER → 2018-10-25 | Outpatient (CLI) | payer OTHER ==
[~2018-10-25] MED LIST changes: +DEXTROSE 5 % AND 0.9 % NACL 1,000 ML IV ONE; -INSU100I3 SQ; -INSU3INS3 SQ; -MAGN400T51 PO; -[UNRECOGNIZED DRUG - CODE] MC
[2018-10-25 09:23] VITALS: BP 84/58
== END | disposition home or self-care (01) ==
LOC: WHH 09:00
PROVIDERS: ATTEND Podiatrist
DX: E11.69 Type 2 diabetes mellitus with other specified complication (principal); M86.8X7 Other osteomyelitis, ankle and foot; E11.52 Type 2 diabetes mellitus with diabetic peripheral angiopathy with gangrene; I96 Gangrene, not elsewhere classified; E11.21 Type 2 diabetes mellitus with diabetic nephropathy; E78.5 Hyperlipidemia, unspecified; I10 Essential (primary) hypertension; Z79.4 Long term (current) use of insulin; Z79.899 Other long term (current) drug therapy
CPT/HCPCS: 97605

== ENCOUNTER 2018-10-27 14:08 | Inpatient (IN) | payer OTHER ==
[~2018-10-27] VITALS: Ht 180.3 cm; Wt 63.5 kg
[2018-10-27] VITALS (10 sets, daily range): BP systolic 118–139; BP diastolic 78–92
[2018-10-27] MEDS: SODIUM CHLORIDE 0.9% 1000ML 1,000 ML IV SCH ×3 (02:00→20:30)
[~2018-10-27 14:08] MED LIST changes: -DEXTROSE 5 % AND 0.9 % NACL 1,000 ML IV ONE
[2018-10-27] MEDS ORDERED: CEFTRIAXONE SODIUM 1 GM ONE (14:42)
[2018-10-27] MEDS ORDERED: SODIUM CHLORIDE 0.9% 50 ML IV ONE (14:42)
[2018-10-27] MEDS ORDERED: SODIUM CHLORIDE 0.9% 1000ML 2,000 ML IV ONE (14:42)
[2018-10-27 14:49] LABS: ABG HCO3 27.9 mmol/L (21.0-28.0); ABG OXYGEN SATURATION 96.7 % (95.0-99.0); ABG PCO2 39 mmHg (35-48)
[2018-10-27 14:56] LABS: BASOPHILS % (AUTO) 1.2 % (0.0-5.0); EOSINOPHILS % (AUTO) 1.8 % (0.0-8.0); HEMATOCRIT 36.8 % (42-54); MEAN CORPUSCULAR HEMOGLOBIN 29.2 pg (27.0-33.0); MEAN CORPUSCULAR HGB CONC 32.9 g/dL (32.0-36.0); MEAN CORPUSCULAR VOLUME 88.6 fL (79-99); MONOCYTES % (AUTO) 5.1 % (3.0-13.0); NEUTROPHILS % (AUTO) 55.9 % (40.0-77.0); NUCLEATED RED BLOOD CELLS 0.1 % (0.0-0.19); PLATELET COUNT (AUTO) 252 K/uL (130-400); RED BLOOD CELL COUNT(AUTO) 4.16 MIL/uL (4.50-6.20); RED CELL DISTRIBUTION WIDTH 13.8 % (11.0-15.5); WHITE BLOOD COUNT (AUTO) 5.6 K/uL (4.8-10.8)
[2018-10-27 15:09] LABS: INR 0.93 (0.85-1.15); PARTIAL THROMBOPLASTIN TIME 23.3 SEC (26.3-35.5); PROTHROMBIN TIME 9.8 SEC (9.6-11.6)
[2018-10-27] MEDS ORDERED: INSULIN HUMULIN R 100 UNIT/ML 3ML ONE ×2 (15:10→15:21)
[2018-10-27 15:17] LABS: ALANINE AMINOTRANSFERASE 30 U/L (12-78); ALBUMIN 3.5 g/dL (3.5-5.0); ASPARTATE AMINOTRANSFERASE 16 U/L (10-37); BILIRUBIN,TOTAL 0.3 mg/dL (0.2-1.0); CARBON DIOXIDE 31 mmol/L (21-32); CHLORIDE 93 mmol/L (101-111); CREATINE KINASE, TOTAL 13 U/L (21-232); CREATININE 1.6 mg/dL (0.5-1.5); GLOMERULAR FILTR. RATE CALC 56 mL/min (>60); MYOGLOBIN 26 ng/mL (10-92); POTASSIUM 4.2 mmol/L (3.5-5.1); SODIUM SERUM 131 mmol/L (136-145); TOTAL PROTEIN, SERUM 8.4 g/dL (6.0-8.3); TROPONIN I < 0.04 ng/mL (0.00-0.06); UREA NITROGEN, BLOOD 14 mg/dL (7-18)
[2018-10-27 15:18] LABS: GLUCOSE,RANDOM 749 mg/dL (70-105)
[2018-10-27] MEDS ORDERED: SODIUM CHLORIDE 0.9% 100 ML IV ONE (15:21)
[2018-10-27] MEDS ORDERED: DEXTROSE 5 %-0.45 % NACL 1,000 ML IV PRN (15:30)
[2018-10-27] MEDS ORDERED: SODIUM CHLORIDE 0.9% 1000ML 1,000 ML IV SCH (15:30)
[2018-10-27] MEDS ORDERED: POTASSIUM CHLORIDE 10MEQ/100ML 100 ML IV PRN (15:30)
[2018-10-27] MEDS: INSULIN HUMULIN R 100 UNIT/ML 3ML IV SCH (15:30)
[2018-10-27] MEDS ORDERED: VANCOMYCIN 1GM+NS 250ML 250 ML IV ONE (15:34)
[2018-10-27] MEDS ORDERED: SODIUM CHLORIDE 0.9% 1000ML 1,000 ML IV ONE (15:34)
[2018-10-27] MEDS ORDERED: TEMAZEPAM 15 MG CAPSULE PO PRN (15:45)
[2018-10-27] MEDS ORDERED: ONDANSETRON HCL 4 MG/2 ML VIAL IVP PRN (15:45)
[2018-10-27] MEDS ORDERED: ACETAMINOPHEN EXTRA STRENGTH 500 MG TABLET PO PRN (15:45)
[2018-10-27 17:31] LABS: CREATININE 1.2 mg/dL (0.5-1.5); MAGNESIUM 1.5 mg/dL (1.80-2.40); POTASSIUM 3.4 mmol/L (3.5-5.1)
[2018-10-27 18:03] LABS: APPEARANCE,URINE Clear (CLEAR); BILIRUBIN,URINE Negative (NEGATIVE); COLOR,URINE Yellow (YELLOW); GLUCOSE, URINE (UA) >=1000 mg/dL (NEGATIVE); KETONES,URINE Negative (NEGATIVE); LEUKOCYTE ESTERASE ,URINE Negative (NEGATIVE); NITRATE,URINE Negative (NEGATIVE); OCCULT BLOOD,URINE Negative (NEGATIVE); PH,URINE 7.5 (5.0-8.0); PROTEIN,URINE Negative (NEGATIVE); UROBILINOGEN,URINE 0.2 mg/dL (0.2-1.0)
[2018-10-27] MEDS ORDERED: TRAMADOL HCL 50 MG TABLET PO PRN (20:15)
[2018-10-27] MEDS: METOPROLOL TARTRATE 25 MG TAB PO SCH (21:00)
[2018-10-27] MEDS ORDERED: DEXTROSE 50%-WATER 50 ML DISP.SYRIN IV PRN (21:45)
[2018-10-27] MEDS ORDERED: GLUCAGON 1MG KIT 1 MG ML IM PRN (21:45)
[2018-10-27 21:47] LABS: CREATININE 1.1 mg/dL (0.5-1.5); MAGNESIUM 1.5 mg/dL (1.80-2.40); POTASSIUM 3.5 mmol/L (3.5-5.1)
[2018-10-28] VITALS (11 sets, daily range): BP systolic 102–137; BP diastolic 61–87
[2018-10-28] MEDS: SODIUM CHLORIDE 0.9% 1000ML 1,000 ML IV SCH ×5 (01:30→17:11)
[2018-10-28 03:33] LABS: MAGNESIUM 1.5 mg/dL (1.80-2.40); POTASSIUM 4.1 mmol/L (3.5-5.1)
[2018-10-28] MEDS: INSULIN HUMULIN R 100 UNIT/ML 3ML SQ SCH ×4 (06:39→20:06)
[2018-10-28] MEDS: METOPROLOL TARTRATE 25 MG TAB PO SCH ×2 (08:27→20:15)
[2018-10-28] MEDS: PANTOPRAZOLE SODIUM 40 MG TABLET.DR PO SCH (08:36)
[2018-10-28] MEDS: ENOXAPARIN SODIUM 40 MG/0.4 ML SYRINGE SQ SCH (08:37)
[2018-10-28] MEDS ORDERED: AMLODIPINE BESYLATE 5 MG TAB PO SCH (09:00)
[2018-10-28] MEDS ORDERED: PANTOPRAZOLE 40 MG/VIAL IVP SCH ×2 (09:00)
[2018-10-28] MEDS ORDERED: PHARMACY COMMUNICATION MISC SCH (09:00)
[2018-10-28] MEDS ORDERED: METRONIDAZOLE 500 MG PO SCH (09:00)
[2018-10-28] MEDS ORDERED: MAGNESIUM OXIDE 400 MG TABLET PO SCH (09:00)
[2018-10-28 09:40] LABS: CREATININE 1.1 mg/dL (0.5-1.5); MAGNESIUM 1.4 mg/dL (1.80-2.40); POTASSIUM 3.8 mmol/L (3.5-5.1)
[2018-10-28] MEDS: MAGNESIUM 2GM PREMIX 50ML 50 ML IV PRN (10:37)
[2018-10-28] MEDS: AMOXICILLIN 500 MG CAPSULE PO SCH ×2 (10:37→20:15)
[2018-10-28] MEDS ORDERED: INSULIN LISPRO 100 UNIT/ML 3ML SQ SCH (11:30)
[2018-10-28] MEDS: METRONIDAZOLE 500 MG TABLET PO SCH ×2 (12:02→20:15)
[2018-10-28] MEDS: METOCLOPRAMIDE 5 MG TABLET PO SCH ×2 (12:02→16:29)
[2018-10-28] MEDS: INSULIN HUMULIN R 100 UNIT/ML 3ML IV SCH (13:55)
[2018-10-28] MEDS: INSULIN LISPRO 100 UNIT/ML 3ML SQ SCH (16:31)
[2018-10-28] MEDS: MAGNESIUM OXIDE 400 MG TABLET PO SCH (20:15)
[2018-10-28] MEDS ORDERED: INSULIN GLARGINE 100 UNITS/ML 10 ML VIAL SQ SCH (21:00)
[2018-10-28 22:57] LABS: MAGNESIUM 1.8 mg/dL (1.80-2.40); POTASSIUM 3.5 mmol/L (3.5-5.1)
[2018-10-29] MEDS: MAGNESIUM 2GM PREMIX 50ML 50 ML IV PRN (00:31)
[2018-10-29] MEDS: SODIUM CHLORIDE 0.9% 1000ML 1,000 ML IV SCH ×2 (00:32→06:07)
[2018-10-29 03:53] VITALS: BP 120/75
[2018-10-29 05:09] LABS: HEMATOCRIT 28.7 % (42-54); MEAN CORPUSCULAR HEMOGLOBIN 29.1 pg (27.0-33.0); MEAN CORPUSCULAR HGB CONC 33.6 g/dL (32.0-36.0); MEAN CORPUSCULAR VOLUME 86.5 fL (79-99); NUCLEATED RED BLOOD CELLS 0.2 % (0.0-0.19); PLATELET COUNT (AUTO) 180 K/uL (130-400); RED BLOOD CELL COUNT(AUTO) 3.32 MIL/uL (4.50-6.20); RED CELL DISTRIBUTION WIDTH 13.7 % (11.0-15.5); WHITE BLOOD COUNT (AUTO) 4.4 K/uL (4.8-10.8)
[2018-10-29 05:14] LABS: MAGNESIUM 2.2 mg/dL (1.80-2.40); POTASSIUM 3.7 mmol/L (3.5-5.1)
[2018-10-29] MEDS: METOCLOPRAMIDE 5 MG TABLET PO SCH (06:07)
[2018-10-29] MEDS: PANTOPRAZOLE SODIUM 40 MG TABLET.DR PO SCH (06:07)
[2018-10-29] MEDS: INSULIN HUMULIN R 100 UNIT/ML 3ML SQ SCH ×2 (06:12→11:30)
[2018-10-29 07:34] VITALS: BP 123/82
[2018-10-29] MEDS ORDERED: INSU3INS3 SQ (07:49)
[2018-10-29] MEDS ORDERED: [UNRECOGNIZED DRUG - CODE] MC (07:49)
[2018-10-29] MEDS ORDERED: MAGOX PO (07:49)
[2018-10-29] MEDS ORDERED: MAGN400T51 PO (07:49)
[2018-10-29] MEDS ORDERED: INSU100I3 SQ (07:49)
[2018-10-29] MEDS: INSULIN LISPRO 100 UNIT/ML 3ML SQ SCH (08:14)
[2018-10-29] MEDS: METOPROLOL TARTRATE 25 MG TAB PO SCH (09:23)
[2018-10-29] MEDS: AMOXICILLIN 500 MG CAPSULE PO SCH (09:23)
[2018-10-29] MEDS: MAGNESIUM OXIDE 400 MG TABLET PO SCH (09:23)
[2018-10-29] MEDS: METRONIDAZOLE 500 MG TABLET PO SCH ×2 (09:23→14:38)
[2018-10-29] MEDS: ENOXAPARIN SODIUM 40 MG/0.4 ML SYRINGE SQ SCH (09:24)
[2018-10-29 11:25] VITALS: BP 93/66
[2018-10-29] MEDS ORDERED: HONEY 1 APPL/ML TUBE TP SCH (14:30)
[2018-10-29] MEDS ORDERED: INSULIN GLARGINE 100 UNITS/ML 10 ML VIAL SQ SCH (21:00)
== END 2018-10-29 14:45 | disposition home or self-care (01) | DRG 638 ==
LOC: EDH 14:08 → EDHIP 14:09 → 2BH 20:15 → 2DH 10-28 18:17
PROVIDERS: ADMIT Internal Medicine; ATTEND Internal Medicine
DX: E10.10 Type 1 diabetes mellitus with ketoacidosis without coma (principal); N17.9 Acute kidney failure, unspecified; E10.65 Type 1 diabetes mellitus with hyperglycemia; Z79.4 Long term (current) use of insulin; E10.69 Type 1 diabetes mellitus with other specified complication; D64.9 Anemia, unspecified; E78.5 Hyperlipidemia, unspecified; E83.42 Hypomagnesemia; E87.6 Hypokalemia; Z89.422 Acquired absence of other left toe(s); Z91.19 Patient's noncompliance with other medical treatment and regimen; Z83.3 Family history of diabetes mellitus; Z82.49 Family history of ischemic heart disease and other diseases of the circulatory system
CPT/HCPCS: 36415; 71045; 80048; 80053; 81003; 82435; 82550; 82803; 82947; 82948; 83036; 83605; 83735; 83874; 83930; 84132; 84295; 84484; 85018; 85025; 85027; 85610; 85730; 87040; 87088; 93005; 99291; C9113; G0378; J0696; J1650; J1815; J3370; J3475; J7030; J7042

== ENCOUNTER → 2018-11-05 | Outpatient (CLI) | payer OTHER ==
[~2018-11-05] MED LIST changes: -INSLAN SQ; +INSU100I3 SQ; +INSU3INS3 SQ; +MAGN400T51 PO; -TRAM50TA2 PO; +[UNRECOGNIZED DRUG - CODE] MC
[2018-11-05 09:28] VITALS: BP 84/59
== END | disposition home or self-care (01) ==
LOC: WHH 08:45
PROVIDERS: ATTEND Internal Medicine
DX: E11.621 Type 2 diabetes mellitus with foot ulcer (principal); L97.521 Non-pressure chronic ulcer of other part of left foot limited to breakdown of skin; E11.69 Type 2 diabetes mellitus with other specified complication; M86.8X7 Other osteomyelitis, ankle and foot; E11.52 Type 2 diabetes mellitus with diabetic peripheral angiopathy with gangrene; I96 Gangrene, not elsewhere classified; E11.21 Type 2 diabetes mellitus with diabetic nephropathy; E78.5 Hyperlipidemia, unspecified; I10 Essential (primary) hypertension; Z89.422 Acquired absence of other left toe(s); Z79.4 Long term (current) use of insulin; Z79.899 Other long term (current) drug therapy
CPT/HCPCS: 97605

== ENCOUNTER → 2018-11-10 | Outpatient (CLI) | payer OTHER | END | disposition home or self-care (01) | LOC: WHH 08:45 | PROVIDERS: ATTEND Internal Medicine | DX: E11.621 Type 2 diabetes mellitus with foot ulcer (principal); L97.521 Non-pressure chronic ulcer of other part of left foot limited to breakdown of skin; E11.69 Type 2 diabetes mellitus with other specified complication; M86.8X7 Other osteomyelitis, ankle and foot; E11.52 Type 2 diabetes mellitus with diabetic peripheral angiopathy with gangrene; I96 Gangrene, not elsewhere classified; E11.21 Type 2 diabetes mellitus with diabetic nephropathy; E78.5 Hyperlipidemia, unspecified; I10 Essential (primary) hypertension; Z89.422 Acquired absence of other left toe(s); Z79.4 Long term (current) use of insulin; Z79.899 Other long term (current) drug therapy | CPT/HCPCS: 97605 ==

== ENCOUNTER → 2018-11-12 | Outpatient (CLI) | payer OTHER ==
[2018-11-12 09:16] VITALS: BP 98/66
== END | disposition home or self-care (01) ==
LOC: WHH 08:50
PROVIDERS: ATTEND Internal Medicine
DX: E11.621 Type 2 diabetes mellitus with foot ulcer (principal); L97.521 Non-pressure chronic ulcer of other part of left foot limited to breakdown of skin; E11.69 Type 2 diabetes mellitus with other specified complication; M86.8X7 Other osteomyelitis, ankle and foot; E11.52 Type 2 diabetes mellitus with diabetic peripheral angiopathy with gangrene; I96 Gangrene, not elsewhere classified; E11.21 Type 2 diabetes mellitus with diabetic nephropathy; E78.5 Hyperlipidemia, unspecified; I10 Essential (primary) hypertension; E11.10 Type 2 diabetes mellitus with ketoacidosis without coma; Z89.422 Acquired absence of other left toe(s); Z79.4 Long term (current) use of insulin; Z79.899 Other long term (current) drug therapy
CPT/HCPCS: 97605

== ENCOUNTER → 2018-11-15 | Outpatient (CLI) | payer OTHER ==
[2018-11-15 09:47] VITALS: BP 104/73
== END | disposition home or self-care (01) ==
LOC: WHH 09:00
PROVIDERS: ATTEND Internal Medicine
DX: E11.621 Type 2 diabetes mellitus with foot ulcer (principal); L97.521 Non-pressure chronic ulcer of other part of left foot limited to breakdown of skin; E11.52 Type 2 diabetes mellitus with diabetic peripheral angiopathy with gangrene; I96 Gangrene, not elsewhere classified; E11.69 Type 2 diabetes mellitus with other specified complication; M86.8X7 Other osteomyelitis, ankle and foot; E11.21 Type 2 diabetes mellitus with diabetic nephropathy; E11.65 Type 2 diabetes mellitus with hyperglycemia; I10 Essential (primary) hypertension; E78.5 Hyperlipidemia, unspecified; G47.00 Insomnia, unspecified; Z89.422 Acquired absence of other left toe(s); Z79.4 Long term (current) use of insulin; Z79.899 Other long term (current) drug therapy
CPT/HCPCS: 97605

== ENCOUNTER → 2018-11-17 | Outpatient (CLI) | payer OTHER ==
[2018-11-17 14:39] VITALS: BP 112/63
== END | disposition home or self-care (01) ==
LOC: WHH 13:30
PROVIDERS: ATTEND Internal Medicine
DX: E11.621 Type 2 diabetes mellitus with foot ulcer (principal); L97.521 Non-pressure chronic ulcer of other part of left foot limited to breakdown of skin; E11.52 Type 2 diabetes mellitus with diabetic peripheral angiopathy with gangrene; I96 Gangrene, not elsewhere classified; E11.69 Type 2 diabetes mellitus with other specified complication; M86.8X7 Other osteomyelitis, ankle and foot; E11.21 Type 2 diabetes mellitus with diabetic nephropathy; E11.10 Type 2 diabetes mellitus with ketoacidosis without coma; E11.65 Type 2 diabetes mellitus with hyperglycemia; I10 Essential (primary) hypertension; E78.5 Hyperlipidemia, unspecified; G47.00 Insomnia, unspecified; Z89.422 Acquired absence of other left toe(s); Z79.4 Long term (current) use of insulin; Z79.899 Other long term (current) drug therapy
CPT/HCPCS: 97605

== ENCOUNTER → 2018-11-19 | Outpatient (CLI) | payer OTHER ==
[2018-11-19 09:30] VITALS: BP 94/66
== END | disposition home or self-care (01) ==
LOC: WHH 08:45
PROVIDERS: ATTEND Internal Medicine
DX: E11.621 Type 2 diabetes mellitus with foot ulcer (principal); L97.521 Non-pressure chronic ulcer of other part of left foot limited to breakdown of skin; E11.52 Type 2 diabetes mellitus with diabetic peripheral angiopathy with gangrene; I96 Gangrene, not elsewhere classified; E11.69 Type 2 diabetes mellitus with other specified complication; M86.8X7 Other osteomyelitis, ankle and foot; E11.21 Type 2 diabetes mellitus with diabetic nephropathy; E11.10 Type 2 diabetes mellitus with ketoacidosis without coma; E11.65 Type 2 diabetes mellitus with hyperglycemia; I10 Essential (primary) hypertension; E78.5 Hyperlipidemia, unspecified; G47.00 Insomnia, unspecified; Z89.422 Acquired absence of other left toe(s); Z79.4 Long term (current) use of insulin; Z79.899 Other long term (current) drug therapy
CPT/HCPCS: 99211; A6209

== ENCOUNTER → 2018-11-22 | Outpatient (CLI) | payer OTHER ==
[2018-11-22 09:29] VITALS: BP 96/72
== END | disposition home or self-care (01) ==
LOC: WHH 09:00
PROVIDERS: ATTEND Podiatrist Foot & Ankle Surgery
DX: E11.621 Type 2 diabetes mellitus with foot ulcer (principal); L97.521 Non-pressure chronic ulcer of other part of left foot limited to breakdown of skin; E11.52 Type 2 diabetes mellitus with diabetic peripheral angiopathy with gangrene; I96 Gangrene, not elsewhere classified; E11.69 Type 2 diabetes mellitus with other specified complication; M86.8X7 Other osteomyelitis, ankle and foot; E11.21 Type 2 diabetes mellitus with diabetic nephropathy; E11.10 Type 2 diabetes mellitus with ketoacidosis without coma; I10 Essential (primary) hypertension; E78.5 Hyperlipidemia, unspecified; Z89.422 Acquired absence of other left toe(s); Z79.4 Long term (current) use of insulin; Z79.899 Other long term (current) drug therapy
CPT/HCPCS: 99211; A6209

== ENCOUNTER 2022-03-24 07:34 | Inpatient (IN) | payer MEDICARE ==
[2022-03-24] VITALS (16 sets, daily range): BP systolic 122–151; BP diastolic 69–93
[~2022-03-24] VITALS: Ht 175.3 cm; Wt 99.8 kg
[~2022-03-24 07:34] MED LIST changes: +MAGN400T7 PO; -MAGOX PO
[2022-03-24] MEDS ORDERED: ACETAMINOPHEN 325 MG TAB PO ONE (08:00)
[2022-03-24] MEDS ORDERED: LACTATED RINGERS 1000ML 1,000 ML IV ONE (08:00)
[2022-03-24] MEDS ORDERED: PANTOPRAZOLE 40 MG/VIAL IVP ONE (08:00)
[2022-03-24 08:17] LABS: BASOPHILS % (AUTO) 0.4 % (0.0-5.0); HEMATOCRIT 34.2 % (42-54); LYMPHOCYTES % (AUTO) 16.5 % (21.0-51.0); MEAN CORPUSCULAR HEMOGLOBIN 29.7 pg (27.0-33.0); MEAN CORPUSCULAR HGB CONC 32.2 g/dL (32.0-36.0); MEAN CORPUSCULAR VOLUME 92.4 fL (79-99); MONOCYTES % (AUTO) 10.4 % (3.0-13.0); NEUTROPHILS % (AUTO) 70.9 % (40.0-77.0); PLATELET COUNT (AUTO) 271 K/uL (130-400); WHITE BLOOD COUNT (AUTO) 13.3 K/uL (4.8-10.8)
[2022-03-24 08:25] LABS: APPEARANCE,URINE Clear (CLEAR); BILIRUBIN,URINE Negative (NEGATIVE); COLOR,URINE Dark Yellow (YELLOW); GLUCOSE, URINE (UA) Negative (NEGATIVE); KETONES,URINE Trace mg/dL (NEGATIVE); LEUKOCYTE ESTERASE ,URINE Negative (NEGATIVE); NITRATE,URINE Negative (NEGATIVE); OCCULT BLOOD,URINE Trace (NEGATIVE); PROTEIN,URINE POS 2+ mg/dL (NEGATIVE)
[2022-03-24 08:26] LABS: CREATININE 1.8 mg/dL (0.5-1.5); POTASSIUM 4.2 mmol/L (3.5-5.1)
[2022-03-24 08:31] LABS: ALBUMIN 2.6 g/dL (3.5-5.0); BILIRUBIN,TOTAL 0.4 mg/dL (0.2-1.0); TOTAL PROTEIN, SERUM 7.3 g/dL (6.0-8.3)
[2022-03-24 08:33] LABS: BACTERIA,URINE Rare /HPF (None Seen); MUCUS,URINE Rare LPF (None Seen); RBC,URINE 0-1 /HPF (0-1); SQUAMOUS EPITHELIAL CELL,UR Rare /HPF (0-2); WBC,URINE 0-1 /HPF (0-1)
[2022-03-24] MEDS ORDERED: HYDROMORPHONE 1 MG INJ IV PRN (12:30)
[2022-03-24] MEDS: ZOSYN 3.375GM+NS 50ML 50 ML IV SCH ×2 (13:00→22:14)
[2022-03-24] MEDS: 0.9%NACL 1000ML 1,000 ML IV SCH ×4 (14:00→22:20)
[2022-03-24] MEDS: ZOSYN 3.375GM +NS 50ML IV SCH (14:00)
[2022-03-24] MEDS ORDERED: LISI2.5T13 PO (14:24)
[2022-03-24] MEDS ORDERED: FAMO20TA8 PO (14:24)
[2022-03-24] MEDS ORDERED: INSU100I15 SQ (14:24)
[2022-03-24] MEDS ORDERED: ATOR20TA65 PO (14:24)
[2022-03-24] MEDS ORDERED: CETI10TA57 PO (14:24)
[2022-03-24] MEDS ORDERED: OMEP40CA21 PO (14:24)
[2022-03-24] MEDS ORDERED: INSLAN SQ (14:24)
[2022-03-24] MEDS ORDERED: DICL75TA5 PO (14:24)
[2022-03-24] MEDS ORDERED: ALBU8.5H8 IH (14:24)
[2022-03-24] MEDS ORDERED: FENTANYL CITRATE PF 50 MCG/1 ML 2ML VIAL ONE ×3 (18:49→20:42)
[2022-03-24] MEDS ORDERED: PROPOFOL 10 MG/ML 20ML VIAL IV ONE (18:49)
[2022-03-24] MEDS ORDERED: LIDOCAINE PF 100MG/5ML (2%) SYRINGE 5ML ONE (18:49)
[2022-03-24] MEDS ORDERED: ROCURONIUM 10MG/1ML SYR 10 MG/ML ML ONE (18:49)
[2022-03-24] MEDS ORDERED: MIDAZOLAM HCL 1 MG/ML 2ML VIAL ONE (18:50)
[2022-03-24] MEDS ORDERED: ONDANSETRON 4MG INJ ONE (18:59)
[2022-03-24] MEDS ORDERED: LIDOCAINE 1%-EPI 1:100,000 20 ML VIAL IJ ONE (19:03)
[2022-03-24] MEDS ORDERED: BUPIVACAINE/PF 0.25% 30ML VIAL IJ ONE (19:03)
[2022-03-24] MEDS ORDERED: CEFAZOLIN SODIUM 1 GM VIAL ONE (19:03)
[2022-03-24] MEDS ORDERED: MEPERIDINE-PF 25 MG/ML SYG ONE ×4 (19:12→21:08)
[2022-03-24] MEDS ORDERED: GLYCOPYRROLATE 1 MG/5 ML SYRINGE ONE (20:27)
[2022-03-24] MEDS ORDERED: NEOSTIGMINE 5MG/5ML SYR IV ONE (20:28)
[2022-03-24] MEDS ORDERED: INSULIN GLARGINE 100 UNITS/ML 10 ML VIAL SQ SCH (21:00)
[2022-03-24] MEDS: ONDANSETRON 4MG INJ IV PRN (22:05)
[2022-03-24] MEDS: FAMOTIDINE 20MG VIAL IV SCH (22:05)
[2022-03-24] MEDS ORDERED: OXYCODONE/ACETAMIN 5/325MG TAB PO PRN (22:30)
[2022-03-24] MEDS: METRONIDAZOLE 500MG/100ML BAG IVPB SCH (22:46)
[2022-03-24] MEDS: FLUCONAZOLE 200 MG/NS 100 ML 100 ML IV SCH (23:18)
[2022-03-25] VITALS (10 sets, daily range): BP systolic 125–159; BP diastolic 72–94
[2022-03-25] MEDS ORDERED: INSULIN HUMULIN R 100 UNIT/ML 3ML SQ SCH
[2022-03-25] MEDS ORDERED: HYDROMORPHONE 0.5 MG SYG (0.5MG/0.5ML) IVP PRN (05:00)
[2022-03-25] MEDS: ZOSYN 3.375GM+NS 50ML 50 ML IV SCH ×3 (05:01→20:29)
[2022-03-25 05:06] LABS: BASOPHILS % (AUTO) 0.1 % (0.0-5.0); HEMATOCRIT 32.2 % (42-54); LYMPHOCYTES % (AUTO) 8.2 % (21.0-51.0); MEAN CORPUSCULAR HEMOGLOBIN 28.9 pg (27.0-33.0); MEAN CORPUSCULAR HGB CONC 31.4 g/dL (32.0-36.0); MEAN CORPUSCULAR VOLUME 92.3 fL (79-99); MONOCYTES % (AUTO) 6.6 % (3.0-13.0); NEUTROPHILS % (AUTO) 84.5 % (40.0-77.0); PLATELET COUNT (AUTO) 263 K/uL (130-400); RED BLOOD CELL COUNT(AUTO) 3.49 MIL/uL (4.50-6.20); RED CELL DISTRIBUTION WIDTH 12.9 % (11.0-15.5); WHITE BLOOD COUNT (AUTO) 11.3 K/uL (4.8-10.8)
[2022-03-25 05:10] LABS: HEMOGLOBIN A1C 7.5 % (4.0-6.0)
[2022-03-25 05:35] LABS: ALBUMIN 2.1 g/dL (3.5-5.0); CREATININE 1.3 mg/dL (0.5-1.5); PHOSPHORUS 3.4 mg/dL (2.5-4.9); POTASSIUM 5.2 mmol/L (3.5-5.1)
[2022-03-25 06:06] LABS: BILIRUBIN,TOTAL 0.6 mg/dL (0.2-1.0); MAGNESIUM 1.3 mg/dL (1.80-2.40); THYROID STIMULATING HORMONE 0.34 uIU/mL (0.36-3.74); TOTAL PROTEIN, SERUM 6.5 g/dL (6.0-8.3)
[2022-03-25] MEDS: METRONIDAZOLE 500MG/100ML BAG IVPB SCH ×3 (06:25→22:41)
[2022-03-25] MEDS: INSULIN HUMULIN R 100 UNIT/ML 3ML SQ SCH ×4 (06:28→20:38)
[2022-03-25] MEDS: INSULIN GLARGINE 100 UNITS/ML 10 ML VIAL SQ SCH (06:28)
[2022-03-25] MEDS: ONDANSETRON 4MG INJ IV PRN ×2 (08:25→17:06)
[2022-03-25] MEDS: ENOXAPARIN SODIUM 40 MG/0.4 ML SYRINGE SQ SCH (08:25)
[2022-03-25] MEDS: FAMOTIDINE 20MG VIAL IV SCH ×2 (08:25→20:29)
[2022-03-25] MEDS: ACETAMINOPHEN WITH CODEINE 1 TAB TAB PO PRN ×2 (08:26→20:30)
[2022-03-25] MEDS: MAGNESIUM 2GM PREMIX 50ML 50 ML IV PRN (08:52)
[2022-03-25] MEDS: KAYEXALATE 15GM/60ML PO SCH (08:53)
[2022-03-25] MEDS: ZOSYN 3.375GM +NS 50ML IV SCH (11:22)
[2022-03-25] MEDS ORDERED: BENZOCAINE/MENTH/CETYLPYRD CL 1 EACH LOZENGE MM PRN (17:30)
[2022-03-26] MEDS: FLUCONAZOLE 200 MG/NS 100 ML 100 ML IV SCH ×2 (00:21→23:46)
[2022-03-26 04:33] VITALS: BP 156/95
[2022-03-26 05:53] LABS: BASOPHILS % (AUTO) 0.3 % (0.0-5.0); EOSINOPHILS % (AUTO) 0.6 % (0.0-8.0); HEMATOCRIT 30.8 % (42-54); LYMPHOCYTES % (AUTO) 19.3 % (21.0-51.0); MEAN CORPUSCULAR HGB CONC 32.5 g/dL (32.0-36.0); MEAN CORPUSCULAR VOLUME 89.3 fL (79-99); MONOCYTES % (AUTO) 10.5 % (3.0-13.0); NEUTROPHILS % (AUTO) 68.6 % (40.0-77.0); PLATELET COUNT (AUTO) 295 K/uL (130-400); RED BLOOD CELL COUNT(AUTO) 3.45 MIL/uL (4.50-6.20); RED CELL DISTRIBUTION WIDTH 12.5 % (11.0-15.5)
[2022-03-26] MEDS: ZOSYN 3.375GM+NS 50ML 50 ML IV SCH ×3 (05:56→22:02)
[2022-03-26] MEDS: METRONIDAZOLE 500MG/100ML BAG IVPB SCH ×2 (05:56→12:50)
[2022-03-26 06:00] LABS: BILIRUBIN,TOTAL 0.4 mg/dL (0.2-1.0); CREATININE 1.2 mg/dL (0.5-1.5); MAGNESIUM 1.6 mg/dL (1.80-2.40); TOTAL PROTEIN, SERUM 6.5 g/dL (6.0-8.3)
[2022-03-26] MEDS: INSULIN GLARGINE 100 UNITS/ML 10 ML VIAL SQ SCH (06:13)
[2022-03-26] MEDS: ONDANSETRON 4MG INJ IV PRN ×2 (06:14→12:50)
[2022-03-26] MEDS: ACETAMINOPHEN WITH CODEINE 1 TAB TAB PO PRN ×2 (06:14→14:24)
[2022-03-26] MEDS: INSULIN HUMULIN R 100 UNIT/ML 3ML SQ SCH ×3 (06:17→19:59)
[2022-03-26] MEDS: KAYEXALATE 15GM/60ML PO SCH (08:00)
[2022-03-26] MEDS: MAGNESIUM 2GM PREMIX 50ML 50 ML IV PRN (08:07)
[2022-03-26] MEDS: FAMOTIDINE 20MG VIAL IV SCH ×2 (08:07→20:04)
[2022-03-26] MEDS: ENOXAPARIN SODIUM 40 MG/0.4 ML SYRINGE SQ SCH (08:09)
[2022-03-26 08:22] VITALS: BP 144/90
[2022-03-26] MEDS ORDERED: METOCLOPRAMIDE 10 MG/2 ML VIAL IVP SCH (08:30)
[2022-03-26] MEDS ORDERED: METO5 PO (08:42)
[2022-03-26] MEDS: METOCLOPRAMIDE 10 MG/2 ML VIAL IVP SCH ×3 (11:39→20:04)
[2022-03-26] MEDS: ZOSYN 3.375GM +NS 50ML IV SCH (12:22)
[2022-03-26] MEDS ORDERED: LISINOPRIL 10 MG TABLET PO SCH (14:00)
[2022-03-26] MEDS ORDERED: HYDROCHLOROTHIAZIDE 25 MG TABLET PO ONE (14:00)
[2022-03-26 17:59] VITALS: BP 150/90
[2022-03-26 20:18] VITALS: BP 154/98
[2022-03-26 23:44] VITALS: BP 148/94
[2022-03-27] VITALS (7 sets, daily range): BP systolic 98–147; BP diastolic 50–96
[2022-03-27 05:30] LABS: BASOPHILS % (AUTO) 0.4 % (0.0-5.0); HEMATOCRIT 30.5 % (42-54); LYMPHOCYTES % (AUTO) 15.9 % (21.0-51.0); MEAN CORPUSCULAR HEMOGLOBIN 28.9 pg (27.0-33.0); MEAN CORPUSCULAR HGB CONC 32.5 g/dL (32.0-36.0); MEAN CORPUSCULAR VOLUME 88.9 fL (79-99); MONOCYTES % (AUTO) 7.9 % (3.0-13.0); PLATELET COUNT (AUTO) 291 K/uL (130-400); RED BLOOD CELL COUNT(AUTO) 3.43 MIL/uL (4.50-6.20); RED CELL DISTRIBUTION WIDTH 12.9 % (11.0-15.5); WHITE BLOOD COUNT (AUTO) 9.9 K/uL (4.8-10.8)
[2022-03-27 05:38] LABS: CREATININE 1.2 mg/dL (0.5-1.5); MAGNESIUM 1.7 mg/dL (1.80-2.40); POTASSIUM 3.8 mmol/L (3.5-5.1)
[2022-03-27] MEDS: ZOSYN 3.375GM+NS 50ML 50 ML IV SCH ×3 (06:13→21:36)
[2022-03-27] MEDS: METOCLOPRAMIDE 10 MG/2 ML VIAL IVP SCH ×4 (06:13→21:36)
[2022-03-27] MEDS: INSULIN HUMULIN R 100 UNIT/ML 3ML SQ SCH ×4 (06:13→21:00)
[2022-03-27] MEDS: INSULIN GLARGINE 100 UNITS/ML 10 ML VIAL SQ SCH (06:14)
[2022-03-27] MEDS: KAYEXALATE 15GM/60ML PO SCH (07:14)
[2022-03-27] MEDS: ONDANSETRON 4MG INJ IV PRN (07:40)
[2022-03-27] MEDS: FAMOTIDINE 20MG VIAL IV SCH ×2 (07:41→21:36)
[2022-03-27] MEDS: MAGNESIUM 2GM PREMIX 50ML 50 ML IV PRN (07:41)
[2022-03-27] MEDS: ENOXAPARIN SODIUM 40 MG/0.4 ML SYRINGE SQ SCH (07:41)
[2022-03-27] MEDS: ACETAMINOPHEN WITH CODEINE 1 TAB TAB PO PRN ×2 (09:14→22:12)
[2022-03-27] MEDS: LISINOPRIL 10 MG TABLET PO SCH (16:51)
[2022-03-27] MEDS: HYDROCHLOROTHIAZIDE 25 MG TABLET PO SCH (16:51)
[2022-03-27] MEDS: FLUCONAZOLE 200 MG/NS 100 ML 100 ML IV SCH (23:39)
[2022-03-28 03:53] VITALS: BP 135/85
[2022-03-28] MEDS: ZOSYN 3.375GM+NS 50ML 50 ML IV SCH ×2 (05:46→13:18)
[2022-03-28] MEDS: METOCLOPRAMIDE 10 MG/2 ML VIAL IVP SCH ×2 (05:53→12:06)
[2022-03-28] MEDS: INSULIN HUMULIN R 100 UNIT/ML 3ML SQ SCH ×2 (06:18→11:30)
[2022-03-28] MEDS: KAYEXALATE 15GM/60ML PO SCH (07:31)
[2022-03-28 08:00] VITALS: BP 149/95
[2022-03-28 08:23] LABS: BASOPHILS % (AUTO) 0.3 % (0.0-5.0); EOSINOPHILS % (AUTO) 1.7 % (0.0-8.0); HEMATOCRIT 31.3 % (42-54); LYMPHOCYTES % (AUTO) 18.6 % (21.0-51.0); MEAN CORPUSCULAR HEMOGLOBIN 28.9 pg (27.0-33.0); MEAN CORPUSCULAR HGB CONC 32.3 g/dL (32.0-36.0); MEAN CORPUSCULAR VOLUME 89.7 fL (79-99); MONOCYTES % (AUTO) 7.1 % (3.0-13.0); NEUTROPHILS % (AUTO) 71.7 % (40.0-77.0); PLATELET COUNT (AUTO) 338 K/uL (130-400); RED BLOOD CELL COUNT(AUTO) 3.49 MIL/uL (4.50-6.20); WHITE BLOOD COUNT (AUTO) 9.8 K/uL (4.8-10.8)
[2022-03-28 08:37] LABS: CREATININE 1.3 mg/dL (0.5-1.5); MAGNESIUM 1.9 mg/dL (1.80-2.40); PHOSPHORUS 3.6 mg/dL (2.5-4.9); POTASSIUM 3.6 mmol/L (3.5-5.1)
[2022-03-28] MEDS: LISINOPRIL 10 MG TABLET PO SCH (08:52)
[2022-03-28] MEDS: INSULIN GLARGINE 100 UNITS/ML 10 ML VIAL SQ SCH (08:52)
[2022-03-28] MEDS: HYDROCHLOROTHIAZIDE 25 MG TABLET PO SCH (08:53)
[2022-03-28] MEDS: ENOXAPARIN SODIUM 40 MG/0.4 ML SYRINGE SQ SCH (08:53)
[2022-03-28] MEDS: FAMOTIDINE 20MG VIAL IV SCH (08:53)
[2022-03-28 12:00] VITALS: BP 148/88
== END 2022-03-28 16:00 | disposition home or self-care (01) | DRG 340 ==
LOC: EDH 07:34 → EDHIP 12:08 → OBSVTOIN 12:08 → 3BH 15:20
PROVIDERS: ADMIT Internal Medicine; ATTEND Internal Medicine
PROC: 0DTJ4ZZ Resection of Appendix, Percutaneous Endoscopic Approach (ICD-10-PCS; principal; 2022-03-24 19:11)
DX: K35.33 Acute appendicitis with perforation, localized peritonitis, and gangrene, with abscess (principal); K31.84 Gastroparesis; L97.509 Non-pressure chronic ulcer of other part of unspecified foot with unspecified severity; K56.41 Fecal impaction; E10.621 Type 1 diabetes mellitus with foot ulcer; E10.51 Type 1 diabetes mellitus with diabetic peripheral angiopathy without gangrene; Z20.822 Contact with and (suspected) exposure to COVID-19; E66.01 Morbid (severe) obesity due to excess calories; I10 Essential (primary) hypertension; E83.42 Hypomagnesemia; Z79.4 Long term (current) use of insulin; Z82.49 Family history of ischemic heart disease and other diseases of the circulatory system; Z83.3 Family history of diabetes mellitus; Z68.32 Body mass index [BMI] 32.0-32.9, adult
CPT/HCPCS: 36415; 74176; 78264; 80048; 80053; 80061; 81001; 82607; 82728; 82746; 82948; 83036; 83540; 83550; 83690; 83735; 84100; 84145; 84443; 85025; 85045; 85651; 87635; A4344; A9541; C9113; G0378; J0690; J1170; J1450; J1650; J2001; J2175; J2250; J2405; J2543; J2704; J2710; J2765; J3010; J3475; J3490; J7030; J7120